=== PATIENT | female | born 1970 | race Caucasian/White ===

== ENCOUNTER 2019-05-19 19:31 | Emergency (ER) | payer BC ==
[~2019-05-19] VITALS: Ht 160 cm; Wt 81.6 kg
[2019-05-19 19:35] VITALS: Ht 160 cm; Wt 81.6 kg
[2019-05-19 21:43] VITALS: BP 149/93
== END 2019-05-19 21:43 | disposition home or self-care (01) ==
LOC: ED 19:31
DX: H65.91 Unspecified nonsuppurative otitis media, right ear (principal)